=== PATIENT | male | born 1975 | race Caucasian/White ===

== ENCOUNTER 2021-03-08 12:28 | Emergency (ER) | payer SELFPAY ==
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
[2021-03-08 12:44] VITALS: BP 144/87; PULSE 74; RESP 18; TEMP 36.8; O2SAT 96; BMI 34.1
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
== END 2021-03-08 13:45 | disposition home or self-care (01) ==
PROVIDERS: Emergency Provider Family Medicine
DX: S86.112A Strain of other muscle(s) and tendon(s) of posterior muscle group at lower leg level, left leg, initial encounter (principal); X50.0XXA Overexertion from strenuous movement or load, initial encounter
CPT/HCPCS: 93971; 99282